=== PATIENT | male | born 1985 | race Hispanic/Latino ===

== ENCOUNTER 2019-03-20 15:40 | Emergency (ER) | payer BC ==
[2019-03-20 15:44] VITALS: RESP 16; O2SAT 98
[2019-03-20] MEDS ORDERED: Sodium Chloride 0.9% 1,000 ML IV STA (16:29)
[2019-03-20 16:55] LABS: BASO % 0.6 % (0.0-2.0); EOS # 0.1 K/uL (0.0-0.7); EOS % 2.8 % (0.0-4.0); HEMOGLOBIN 14.7 g/dL (12.0-18.0); LYMPH # 0.6 K/uL (1.0-4.3); LYMPH % 11.5 % (20.0-40.0); MEAN CELL VOLUME 87.8 fl (80.0-94.0); MEAN CORPUSCULAR HEMOGLOBIN 29.5 pg (27.0-31.0); MEAN CORPUSCULAR HGB CONC 33.6 g/dL (33.0-37.0); MEAN PLATELET VOLUME 7.3 fl (7.2-11.7); MONO # 0.6 K/uL (0.0-0.8); MONO % 11.2 % (0.0-10.0); NEUT # 3.7 K/uL (1.8-7.0); NEUT % 73.9 % (50.0-75.0); RBC 4.97 Mil/uL (4.40-5.90); RED CELL DISTRIBUTION WIDTH 12.4 % (11.5-14.5); WHITE BLOOD COUNT 5.1 K/uL (4.8-10.8)
[2019-03-20 17:00] LABS: URINE BACTERIA RARE (<OCC); URINE BILIRUBIN NEGATIVE (NEGATIVE); URINE BLOOD NEGATIVE (NEGATIVE); URINE CLARITY CLEAR (Clear); URINE COLOR STRAW (YELLOW); URINE GLUCOSE (UA) NEG (NEGATIVE); URINE HYALINE CAST 0-2 /hpf (0-2); URINE LEUKOCYTE ESTERASE NEG Leu/uL (Negative); URINE PROTEIN NEGATIVE (NEGATIVE); URINE UROBILINOGEN 0.2-1.0 mg/dL (0.2-1.0)
[2019-03-20 17:08] LABS: ALB/GLOB RATIO 1.5 (1.0-2.1); ALBUMIN 4.5 g/dL (3.5-5.0); CALCIUM 9.2 mg/dL (8.4-10.2)
--- NOTE | 2019-03-20 17:39 | ED PDOC ---
HPI: Back Time Seen by Provider: 03/20/19 16:10 Chief Complaint (Nursing): Male Genitourinary Chief Complaint (Provider): Back Pain History Per: Patient History/Exam Limitations: no limitations Onset/Duration Of Symptoms: Days (2x) Current Symptoms Are (Timing): Still Present Severity: Moderate Additional Complaint(s): 33 year old male with no past medical history presents to the ED for an evaluation of bilateral back and flank pain that started yesterday. Patient reports having associated generalized weakness, an increase in thirst, an in crease in urination, and frothy urine. Patient states that he has had a UTI 1x time in the past with symptoms of pain with urination and to the urethra without frequency. Patient denies having pain with urination today and any recent medical workups. Patient has a family history of type 2 diabetes (father). PMD: none provided. Past Medical History Reviewed: Historical Data, Nursing Documentation, Vital Signs Vital Signs: Last Vital Signs Temp 98.7 F 03/20/19 15:44 Pulse 71 03/20/19 15:44 Resp 16 03/20/19 15:44 BP 144/86 03/20/19 15:44 Pulse Ox 98 03/20/19 15:44 LAKISHA Report Viewed: Yes Primary Care Provider: Non [facility] Provider, - Medical History PMH: No Chronic Diseases - Family History Family History: States: Diabetes (father, type 2) - Social History Current smoker - smoking cessation education provided: No Ex-Smoker (has not smoked in the last 12 months): Yes Alcohol: Social Drugs: Denies - Allergies Allergies/Adverse Reactions: Allergies Allergy/AdvReac Type Severity Reaction Status Date / Time No Known Allergies Allergy Verified 03/20/19 15:44 Review of Systems ROS Statement: Except As Marked, All Systems Reviewed And Found Negative Constitutional: Positive for: Weakness, Other (increase in thirst) Genitourinary Male: Positive for: Frequency, Other (frothy urine). Negative for: Dysuria Musculoskeletal: Positive for: Back Pain (bilateral back and flank pain) Physical Exam - Reviewed Nursing Documentation Reviewed: Yes Vital Signs Reviewed: Yes - Physical Exam Appears: Positive for: Well, Non-toxic, No Acute Distress Head Exam: Positive for: ATRAUMATIC, NORMOCEPHALIC Skin: Positive for: Normal Color, Warm, Dry Eye Exam: Positive for: Normal appearance Cardiovascular/Chest: Positive for: Regular Rate, Rhythm Respiratory: Positive for: Normal Breath Sounds Gastrointestinal/Abdominal: Positive for: Normal Exam, Soft. Negative for: Tenderness Back: Positive for: Normal Inspection. Negative for: L CVA Tenderness, R CVA Tenderness, Vertebral Tenderness, Muscle Spasm Neurological/Psych: Positive for: Awake, Alert, Oriented (3x) - Laboratory Results Result Diagrams: 03/20/19 16:51 03/20/19 16:51 Lab Results: Total Bilirubin 0.4 mg/dl (0.2-1.3) 03/20/19 16:51 AST 27 U/L (17-59) 03/20/19 16:51 ALT 43 U/L (21-72) 03/20/19 16:51 Alkaline Phosphatase 54 U/L (38-126) 03/20/19 16:51 Total Protein 7.5 G/DL (6.3-8.2) 03/20/19 16:51 Albumin 4.5 g/dL (3.5-5.0) 03/20/19 16:51 Globulin 2.9 gm/dL (2.2-3.9) 03/20/19 16:51 Albumin/Globulin Ratio 1.5 (1.0-2.1) 03/20/19 16:51 Urine Color Straw (YELLOW) 03/20/19 16:51 Urine Clarity Clear (Clear) 03/20/19 16:51 Urine pH 6.0 (5.0-8.0) 03/20/19 16:51 Ur Specific [place] 1.008 (1.003-1.030) 03/20/19 16:51 Urine Protein Negative mg/dL (NEGATIVE) 03/20/19 16:51 Urine Glucose (UA) Neg mg/dL (NEGATIVE) 03/20/19 16:51 Urine Ketones Negative mg/dL (NEGATIVE) 03/20/19 16:51 Urine Blood Negative (NEGATIVE) 03/20/19 16:51 Urine Nitrate Negative (NEGATIVE) 03/20/19 16:51 Urine Bilirubin Negative (NEGATIVE) 03/20/19 16:51 Urine Urobilinogen 0.2-1.0 mg/dL (0.2-1.0) 03/20/19 16:51 Ur Leukocyte Esterase Neg Trevor/uL (Negative) 03/20/19 16:51 Urine RBC (Auto) < 1 /hpf (0-3) 03/20/19 16:51 Urine Microscopic WBC < 1 /hpf (0-5) 03/20/19 16:51 Urine Bacteria Rare (<OCC) 03/20/19 16:51 Hyaline Casts 0-2 /hpf (0-2) 03/20/19 16:51 - ECG O2 Sat by Pulse Oximetry: 98 (RA) Pulse Ox Interpretation: Normal Medical Decision Making Medical Decision Makin:10 Initial impression: 33 year old male with back and flank pain. Workup for back and flank pain with increased urination. Initial plan: * basic labs to determine hyperglycemia * urine for presentation of infection or stones * IV fluids * toradol 15 mg IVP * reevaluation * Labs WNL. Discussed primary care follow up which the patient has scheduled. Pt will be contacted with A1C results. Return parameters discussed. ScribeAttestation: Documented byAlissa Hearn, acting as a scribe for Alissa Maya MD. Provider ScribeAttestation: All medical record entries made by the Scribe were at my direction and personally dictated by me. I have reviewed the chart and agree that the record accurately reflects my personal performance of the history, physical exam, medical decision making, and the department course for this patient. I have also personally directed, reviewed, and agree with the discharge instructions and disposition. Disposition - Clinical Impression Clinical Impression: Back pain, Increased urinary frequency - Disposition Disposition Time: 20:38 Condition: IMPROVED Additional Instructions: Follow up with primary doctor as scheduled for tomorrow. Return to the emergency department if symptoms worsen or if new symptoms develop. Forms: [employer] (Urdu)
[2019-03-20 20:30] VITALS: BP 141/91; PULSE 84; TEMP 98.9
--- NOTE | 2019-03-21 13:56 | US ---
Date of service: 03/20/2019 PROCEDURE: Ultrasound of the Kidneys HISTORY: Bilateral flank pain. COMPARISON: None available. TECHNIQUE: Sonogram of the kidneys. FINDINGS: RIGHT KIDNEY: Measures: 4.6 x 11.4 cm. Normal in size, contour and echogenicity. No stone, solid mass lesion or hydronephrosis visualized. LEFT KIDNEY: Measures: 6.5 x 12.6 cm. Normal in size, contour and echogenicity. No stone, solid mass lesion or hydronephrosis visualized. OTHER FINDINGS: None. IMPRESSION: Unremarkable renal sonogram. Concordant findings (preliminary report) provided by ALEXYS DAVENPORT.
== END 2019-03-20 20:43 | disposition home or self-care (01) ==
LOC: H.ER 15:40
DX: M54.9 Dorsalgia, unspecified (principal); R35.0 Frequency of micturition
CPT/HCPCS: 76770; 80053; 81003; 83036; 85025; 96374; 99284; J1885; J7030